=== PATIENT | female | born 1950 | race Caucasian/White ===

== ENCOUNTER 2017-05-10 00:07 | Emergency (ER) | payer OTHER ==
--- NOTE | ~2017-05-10 | CT4 ---
[facility] A Service of [facility] & [facility] RADIOLOGY TEXT RESULTS PATIENT: WILLIAM FLORES LOCATION: [facility] : 49 UNIT #: [id number] AGE: [address]: Sunny Simons MD SEX: F ORDER DR: [id number] [facility] [address] [place], [place] [address] [id number] MR#: [id number] Acc #: [id number] NAME: WILLIAM FLORES. : 1950 SEX: F STUDY DATE/TIME: 05/10/2017 UNIT: [facility] ROOM: STUDY DESCRIPTION: CT Abd and Pelv Wo Cont Attending Physician: Sunny Simons M.D. Ordering Physician: Sunny Simons M.D. Primary Care Physician: Bubba Sifuentes MEDICAL IMAGING REPORT This report is preliminary unless electronic signature is present EXAM Abdomen and pelvis CT 05/10 at 02:06 INDICATIONS Left flank and left lower quadrant pain that started yesterday. Patient also has dysuria. Pain currently rates 10 out of 10. TECHNIQUE Axial noncontrast images were obtained through the abdomen and pelvis. Multiplanar reformats were obtained. Comparison made 01/18/2013. The CT exam was performed with one or more of the following radiation dose reduction techniques: automatic exposure control, adjustment of mA and/or kV according to patient size, and iterative reconstruction. FINDINGS Abdomen: There is continued elevation of the left hemidiaphragm with atelectasis in the left lung base. Gallbladder is unremarkable. Numerous peripelvic cysts are present in the left kidney and probably in the right kidney to a lesser degree. There is a large stone in the right renal pelvis measuring 1.5 x 1.1 cm. No ureteral stones are seen on either side. No hydronephrosis. Previously seen large stone in the lower pole left kidney is no longer present. Tiny nonobstructing stone seen lower pole left kidney. The unenhanced solid organs are otherwise normal. The unopacified GI tract is normal. There is no free fluid. Pelvis: The appendix is normal. There is sigmoid diverticulosis without focal diverticulitis. Distal small bowel grossly normal. Please note that there is some extensive streak artifact in the pelvis from bilateral hip arthroplasties which obscures detail. As such, the bladder is poorly evaluated as are the solid pelvic organs. No lower ureteral stones are STS. [facility] A Service of [facility] RADIOLOGY TEXT RESULTS PATIENT: WILLIAM FLORES LOCATION: [facility] : 49 UNIT #: [id number] AGE: [address]: Sunny Simons MD SEX: F ORDER DR: seen, but the distal-most ureters are not seen. Extensive postoperative changes are again noted in the lumbar spine. Additional hardware has been placed in the upper lumbar spine and lower spinal hardware has been removed in the interval. IMPRESSION 1. Tiny nonobstructing stone lower pole left kidney. Large currently nonobstructing stone in the right renal pelvis. No definite ureteral stones are seen on either side. There is no hydronephrosis. There are bilateral parapelvic renal cysts. Please note that the distal ureters and urinary bladder are not evaluated due to extensive streak artifact from bilateral hip arthroplasties. 2. GI tract including the appendix is normal except for sigmoid diverticulosis. 3. Extensive postoperative change in the lumbar spine. Dictated by... Ra Moffett Jr., M.D. THIS IS AN ELECTRONICALLY VERIFIED REPORT Ra Moffett Jr., M.D. at 05/10/2017 9:24 PM JIM/mia TD: 05/10/2017 10:40 JOB #: [id number] MEDICAL IMAGING REPORT Page 1 of 1 COPY
[~2017-05-10 00:07] MED LIST: ACIPHEX20 MG PO; ADVAIR 2501 DISK W/D PO; ALBUTEROL MININEB NEB; ALLEGRA PO; AMBIEN PO; ASTELIN137 MCG INH; AZELASTINE137 MCG/0. NS; BACTRIM DS TABL1 TAB PO; BACTROBAN15 GM TOP; COUMADIN2.5 MG PO; FLONASE 0.05% N16 G1; FLONASE16 GM; GABAPENTIN300 MG PO; HYDROCODON-ACE1 EAC5 PO; HYDROCODON-ACE1 EACH PO; KEFLEX PO; MELOXICAM15 MG PO; MOBIC15 MG PO; NEURONTIN300 MG PO; PROVENTIL4 MG PO; PYRIDIUM PO; RANITIDINE HCL150 M1 PO; SINGULAIR PO; SUDAFED PO; ULTRAM PO; ZOLPIDEM TARTRAT5 MG PO
[2017-05-10 01:26] LABS: BASOPHIL% 0.3 % (0-2.5); DIFF IND NO; EOSINOPHIL# 0.1 X10e3 (0-0.7); EOSINOPHIL% 1.3 % (0.0-7.0); HEMATOCRIT 38.7 % (35.0-45.0); LYMPHOCYTE# 1.9 X10e3 (1.0-3.5); LYMPHOCYTE% 22.6 % (17.0-45.0); MEAN CELL VOLUME 82.5 FL (83-96); MEAN CORPUSCULAR HEMOGLOBIN 25.6 PG (28-34); MEAN PLATELET VOLUME 8.7 FL (6.5-11.5); MONOCYTE# 0.4 X10e3 (0-1.0); MONOCYTE% 5.3 % (3.0-12.0); NEUTROPHIL# 5.9 X10e3 (1.5-7.1); NEUTROPHIL% 70.5 % (40-75); PLATELET COUNT 246 X10e3 (140-420); RED BLOOD COUNT 4.69 X10e (3.90-5.30); RED CELL DISTRIBUTION WIDTH 16.6 % (11.0-15.5); WHITE BLOOD COUNT 8.4 X10e3 (4.0-10.5)
[2017-05-10 01:38] LABS: URINE SOURCE CLEAN CATCH
[2017-05-10 01:44] LABS: URINE APPEARANCE CLEAR; URINE BILIRUBIN NEG (NEG); URINE BLOOD 2+ (NEG); URINE COLOR YELLOW; URINE GLUCOSE NEG (NEG); URINE KETONE NEG (NEG); URINE LEUKOCYTE ESTERASE 3+ (NEG); URINE NITRATE POS (NEG); URINE PROTEIN NEG (NEG); URINE SPECIFIC GRAVITY 1.011 (1.003-1.035); URINE UROBILINOGEN 0.2 MG/DL (NEG)
[2017-05-10 01:47] LABS: CULTURE INDICATED? YES; URBCS1 AUWI 25-50 /[HPF] (0-2); URINE BACTERIA AUWI NEG (NEGATIVE); URINE SQUAMOUS EPITHELIAL CELL OCC /[HPF]; UWBCS1 AUWI 50-100 (0-5)
[2017-05-10 01:48] LABS: ALBUMIN SERUM 3.5 g/dL (3.5-5.0); BILIRUBIN,TOTAL 0.5 mg/dL (0.2-2.0); BUN/CREATININE RATIO 8.75; CALCIUM SERUM 8.4 mg/dL (8.4-10.2); CREATININE SERUM 0.8 mg/dL (0.6-1.4); GLOM FILT RATE Estimated 76.4 mL/min (>60); POTASSIUM 3.7 mmol/L (3.5-5.1); PROTEIN TOTAL SERUM 6.8 g/dL (6.0-8.3)
[2017-05-10 01:50] LABS: BILIRUBIN, DIRECT 0.1 mg/dL (0.0-0.2); BILIRUBIN,INDIRECT 0.4 mg/dL (0.0-0.9)
== END 2017-05-10 03:10 | disposition home or self-care (01) ==
LOC: CED 00:07
PROVIDERS: Emergency Medicine
DX: N39.0 Urinary tract infection, site not specified (principal); Z90.89 Acquired absence of other organs
CPT/HCPCS: 36415; 74176; 80048; 80076; 81003; 83690; 85025; 87086; 96365; 96375; 99284; J0696; J1170

== ENCOUNTER 2017-07-14 02:18 | Emergency (ER) | payer OTHER ==
[~2017-07-14] VITALS: Ht 154.9 cm; Wt 79.4 kg
--- NOTE | ~2017-07-14 | CT4 ---
[facility] A Service of [facility] & [facility] RADIOLOGY TEXT RESULTS PATIENT: WILLIAM FLORES LOCATION: [facility] : 49 UNIT #: [id number] AGE: [address]: Demar Beaulieu MD SEX: F ORDER DR: [id number] [facility] [address] [place], [place] [address] [id number] E MR#: [id number] Acc #: [id number] NAME: WILLIAM FLORES. : 1950 SEX: F STUDY DATE/TIME: 07/14/2017 5:05 UNIT: [facility] ROOM: STUDY DESCRIPTION: CT Abd and Pelv Wo Cont Attending Physician: Demar Beaulieu M.D. Ordering Physician: Demar Beaulieu M.D. Primary Care Physician: Bubba Sifuentes MEDICAL IMAGING REPORT This report is preliminary unless electronic signature is present EXAM CT abdomen and pelvis, noncontrast, kidney stone protocol, 07/14/2017 HISTORY 67-year-old female in the ED complaining of persistent right flank pain after stent placement, 07/09/2017. History of kidney stones. TECHNIQUE CT examination of the abdomen and pelvis without contrast using kidney stone protocol. This CT exam was performed with one or more of the following radiation dose reduction techniques: automatic exposure control, adjustment of mA and/or kV according to patient size, and iterative reconstruction. COMPARISON KUB, 07/09/2017. CT stone study, 05/10/2017. FINDINGS ABDOMEN: Since the recent KUB of 07/09/2017, the patient has apparently undergone fragmentation procedure for the previously demonstrated a large right renal pelvis stone along with right ureteral stent placement. Numerous small stone fragments are present within the right renal pelvis and right inferior renal collecting system. The right ureteral stent is well positioned. There is mild right hydronephrosis to the level of the UPJ. Remainder of the right ureter is normal in caliber. 1 or 2 tiny nonobstructing left renal calculi. Small bilateral parapelvic renal cysts. Liver, pancreas and spleen are within normal limits. No gallbladder distension or bile duct dilatation. Syom-ze-tsinnkwo sigmoid and descending colonic diverticulosis. The small bowel and colon are otherwise negative, as imaged. Normal appendix. Normal-caliber abdominal aorta. [facility] A Service of [facility] RADIOLOGY TEXT RESULTS PATIENT: WILLIAM FLORES LOCATION: [facility] : 49 UNIT #: [id number] AGE: [address]: Demar Beaulieu MD SEX: F ORDER DR: PELVIS: Pelvis images are degraded by metal artifact from bilateral total hip arthroplasties. Urinary bladder cannot be seen. Postop changes lower lumbar spine fusion surgery with instrumentation. IMPRESSION 1. Previously demonstrated right renal pelvis calcification has been fragmented since the KUB study of 07/09/2017. Numerous tiny stone fragments are present within the right renal pelvis and right lower renal collecting system, and there is mild right hydronephrosis to the level of the UPJ. A right ureteral stent is well positioned. 2. One or two tiny nonobstructing left renal calculi. 3. Small bilateral parapelvic renal cysts. 4. Colonic diverticulosis. Normal appendix. 5. Pelvis images are degraded by metal artifact from bilateral hip arthroplasties. Urinary bladder cannot be seen. Dictated by... Chidi Simons M.D. THIS IS AN ELECTRONICALLY VERIFIED REPORT Chidi Simons M.D. at 07/14/2017 4:47 PM Luis Enrique TD: 07/14/2017 11:47 JOB #: [id number] MEDICAL IMAGING REPORT Page 1 of 1 COPY
[2017-07-14 04:25] LABS: URINE SOURCE CLEAN CATCH
[2017-07-14 05:04] LABS: URINE APPEARANCE CLOUDY; URINE COLOR ORANGE
[2017-07-14 05:05] LABS: URINE BILIRUBIN NEG (NEG); URINE GLUCOSE NORM (NEG); URINE ICTOTEST NEG (NEG); URINE KETONE NEG (NEG); URINE LEUKOCYTE ESTERASE NEG (NEG); URINE NITRATE POS (NEG); URINE PROTEIN 2+ (NEG); URINE UROBILINOGEN 8 MG/DL (NEG)
[2017-07-14 05:06] LABS: URINE BLOOD 4+ (NEG)
[2017-07-14 05:09] LABS: CULTURE INDICATED? YES; URINE BACTERIA AUWI 3+ (NEGATIVE); URINE SQUAMOUS EPITHELIAL CELL MODERATE /[HPF]; UWBCS1 AUWI NEG (0-5)
[2017-07-14 05:09] LABS: BASOPHIL% 0.3 % (0-2.5); EOSINOPHIL# 0.3 X10e3 (0-0.7); EOSINOPHIL% 3.5 % (0.0-7.0); HEMATOCRIT 38.2 % (35.0-45.0); HEMOGLOBIN 12.1 gm/dL (12.0-16.0); LYMPHOCYTE% 23.4 % (17.0-45.0); MEAN CELL VOLUME 82.6 FL (83-96); MEAN CORPUSCULAR HEMOGLOBIN 26.3 PG (28-34); MEAN CORPUSCULAR HGB CONC 31.8 g/dL (30-36); MEAN PLATELET VOLUME 8.1 FL (6.5-11.5); MONOCYTE# 0.4 X10e3 (0-1.0); MONOCYTE% 4.8 % (3.0-12.0); NEUTROPHIL# 5.9 X10e3 (1.5-7.1); PLATELET COUNT 314 X10e3 (140-420); RED BLOOD COUNT 4.62 X10e (3.90-5.30); RED CELL DISTRIBUTION WIDTH 16.2 % (11.0-15.5); WHITE BLOOD COUNT 8.7 X10e3 (4.0-10.5)
[2017-07-14 05:10] LABS: DIFF IND NO
[2017-07-14 05:53] LABS: ALBUMIN SERUM 3.2 g/dL (3.5-5.0); BILIRUBIN,TOTAL 0.4 mg/dL (0.2-2.0); CALCIUM SERUM 8.8 mg/dL (8.4-10.2); GLOM FILT RATE Estimated 57.9 mL/min (>60); POTASSIUM 4.3 mmol/L (3.5-5.1); PROTEIN TOTAL SERUM 6.5 g/dL (6.0-8.3)
== END 2017-07-14 06:20 | disposition home or self-care (01) ==
LOC: CED 02:18
PROVIDERS: Emergency Medicine
DX: N13.2 Hydronephrosis with renal and ureteral calculous obstruction (principal)
CPT/HCPCS: 36415; 74176; 80053; 81003; 85025; 87086; 96361; 96374; 99284; J1885

== ENCOUNTER 2017-07-23 21:43 | Observation (INO) | payer OTHER ==
[~2017-07-23] VITALS: Ht 157.5 cm; Wt 72.6 kg
--- NOTE | ~2017-07-23 | CR2 ---
[facility] A Service of [facility] RADIOLOGY TEXT RESULTS PATIENT: WILLIAM FLORES LOCATION: A : 49 UNIT #: [id number] AGE: [address]: Erin Sams MD SEX: F ORDER DR: [id number] [facility] [address] [place], [place] [address] [id number] I MR#: [id number] Acc #: [id number] NAME: WILLIAM FLORES. : 1950 SEX: F STUDY DATE/TIME: 07/23/2017 23:29 UNIT: [facility] ROOM: 229 STUDY DESCRIPTION: CR Abdomen Acute Series Attending Physician: Erin Sams M.D. Ordering Physician: Ra Michael M.D. Primary Care Physician: Jennifer Lentz Aprn MEDICAL IMAGING REPORT This report is preliminary unless electronic signature is present EXAM Acute abdomen series HISTORY Right flank pain and nausea for 2 days. FINDINGS Flat upright views of the abdomen and upright view of the chest demonstrate no bowel dilatation or displacement. Moderate amount of stool in nondistended colon. Multilevel lumbar spinal fusion. Moderate left upper lumbar and thoracolumbar junction curve. Bilateral hip prostheses. Upright view of the chest demonstrates the cardiac size and pulmonary vascularity are normal. No infiltrates or effusions. Mild elevation of left hemidiaphragm. IMPRESSION No acute findings. Bowel gas pattern is normal. No active disease in the chest. Dictated by... Usman Zhong M.D. THIS IS AN ELECTRONICALLY VERIFIED REPORT Usman Zhong M.D. at 07/24/2017 6:14 AM BETHANY/carlos alberto TD: 07/24/2017 06:02 JOB #: [id number] MEDICAL IMAGING REPORT Page 1 of 1 COPY
--- NOTE | ~2017-07-23 | CO ---
Unit #: [id number] #: [id number] Patient: WILLIAM FLORES [id number] [address] [place], [place] [address] [id number] I MR#: [id number] NAME: WILLIAM FLORES. ROOM: 229 Age: 67 Sex: F Admission Date: 07/24/2017 : 1950 Attending Physician: Navdeep Aguiar M.D. Primary Care Physician: Jennifer Lentz Aprn CONSULTATION REPORT CHIEF COMPLAINT Right flank pain. HISTORY OF PRESENT ILLNESS The patient underwent shockwave lithotripsy and then had her stent removed at the end of 06/2017. The patient had right flank pain. CT scan in the emergency room showed a 6 mm proximal right ureteral stone. She denies fever or chills. PAST MEDICAL HISTORY Back pain, back surgery, oophorectomy, tonsillectomy, hip replacement bilaterally, seasonal allergy, GERD, recent shockwave lithotripsy, history of stones in the past. She had ureteroscopy in the past. DVT, COPD. ALLERGIES No known drug allergies. HOME MEDICATIONS Ambien, Mobic, albuterol, Singulair, hydrocodone, and proton pump inhibitor. FAMILY HISTORY Negative for any stones. SOCIAL HISTORY She stopped smoking in the past. REVIEW OF SYSTEMS Right flank pain. Negative for other systems. PHYSICAL EXAMINATION GENERAL: Alert and oriented. No acute distress. Well-developed female. VITAL SIGNS: Stable. ABDOMEN: Soft without rebound or guarding. BACK: Mild right CVA tenderness. DIAGNOSTIC STUDIES LABORATORY RESULTS: White count 13.1. Urinalysis; no bacteria. She got 1+ leukocytes. IMAGING STUDIES: CT scan, as I mentioned, showed a 6 mm proximal right ureteral stone. ASSESSMENT Unit #: [id number] #: [id number] Patient: WILLIAM FLORES Renal colic, proximal ureteral stone. I explained to her options, risks, benefits, and alternatives. I answered all of her questions. She requested and consents to ureteroscopy, laser lithotripsy, basket extraction, and stent placement on the right. Dictated by... Jaun Mora/daya TD: 07/25/2017 00:26 JOB #: [id number] CONSULTATION REPORT Page 1 of 1 X Manuel Ojeda MD CONSULTATION REPORT
--- NOTE | ~2017-07-23 | DS ---
Unit #: [id number] #: [id number] Patient: WILLIAM WOOD [id number] [address] [address] [id number] I MR#: [id number] NAME: WILLIAM WOOD. ROOM: 229 Age: 67 Sex: F Admission Date: 07/24/2017 : 1950 Discharge Date: 07/25/2017 Attending Physician: Navdeep Aguiar M.D. Primary Care Physician: Jennifer Lentz, [employer] Agent DISCHARGE SUMMARY PRINCIPAL DIAGNOSIS 1. Right renal colic secondary to right ureteral nephrolithiasis. 2. Chronic obstructive pulmonary disease. 3. Asthma. 4. Chronic pain syndrome, maintained on narcotics. 5. Degenerative joint disease. 6. Gastroesophageal reflux disease. 7. Seasonal allergies. 8. Mild protein malnutrition. 9. Overweight. 10. Gastroesophageal reflux disease. CONSULTANTS Dr. Ojeda - Urology. PROCEDURES 1. Cystoscopy, right ureteroscopy, laser lithotripsy and right ureteral stent placement. This occurred on July 24, 2017, without any complication. 2. CT scan of abdomen and pelvis without contrast on July 23, 2017, with a 6 mm obstructing stone in the proximal right ureter 3 cm beyond the ureteropelvic junction. This is associated with severe right hydronephrosis. Multiple stones in the mid and lower right kidney and right renal pelvis that are stable. Tiny nonobstructing stone in the lower pole of the left kidney. CLINICAL HISTORY AND HOSPITAL COURSE Ms. Wood is a nice 67-year-old female with a history of nephrolithiasis who presents to the emergency department with right flank pain. Patient had undergone lithotripsy at [facility] on July 09 and recently had stent removed. She presents with recurrent right flank pain. CT scan reveals right ureteral stone with associated hydronephrosis and patient was admitted. Urology was consulted and patient underwent procedure as outlined above. Postoperatively, she has done well and her pain is resolved. Renal function has remained stable throughout hospitalization. She will be discharged home on pain meds and Macrobid. All other chronic conditions remain stable. DISCHARGE CONDITION Stable. DISCHARGE STATUS Unit #: [id number] #: [id number] Patient: WILLIAM WOOD Discharge to home. DISCHARGE MEDICATIONS 1. Albuterol sulfate tablet 4 mg p.o. at bedtime. 2. Flonase 0.05% nasal spray, 2 sprays per nostril twice daily. 3. Ambien 10 mg at bedtime. 4. Singular 10 mg at bedtime. 5. Mobic 15 mg daily. 6. Lortab 10/325 mg, 1 tablet p.o. q.4 hours p.r.n. for pain. 7. Protonix 40 mg daily. 8. Baclofen 10 mg p.o. b.i.d. 9. Macrobid 100 mg p.o. b.i.d. for ten days. DISCHARGE INSTRUCTIONS Patient was instructed to follow a heart healthy diet. She can increase her activity as tolerated. FOLLOWUP Patient will follow up with Dr. Herr and/or Dr. Ojeda in 1-2 weeks at which time she will need to undergo cystoscopy and stent removal in the office. Dictated by... Jaun Claudio/arpit TD: 07/27/2017 18:29 JOB #: [id number] DISCHARGE SUMMARY Page 1 of 1 X Aster Haile MD DISCHARGE SUMMARY
--- NOTE | ~2017-07-23 | OR ---
Unit #: [id number] #: [id number] Patient: WILLIAM FLORES [id number] [address] [address] [id number] I MR#: [id number] NAME: WILLIAM FLORES. ROOM: 229 Date of Procedure: 07/24/2017 Admission Date: 07/24/2017 Surgeon: Manuel Ojeda M.D. : 1950 Attending Physician: Navdeep Aguiar M.D. Primary Care Physician: Jennifer Lentz Aprn OPERATIVE REPORT PREOPERATIVE DIAGNOSIS Right ureteral stone. POSTOPERATIVE DIAGNOSIS Right ureteral stone. PROCEDURES PERFORMED Cystoscopy, right ureteroscopy, laser lithotripsy, basket extraction, stent placement. ANESTHESIA General. DESCRIPTION OF PROCEDURE After informed consent, she was taken to the operating room, placed on general anesthetic, positioned in lithotomy. Her vagina and perineum were prepped and draped in usual sterile fashion. Cystoscopy was performed. There were no tumors or stones visible. The entire bladder was inspected. A Sensor wire was placed in the right ureter without difficulty. Under fluoroscopy, the stone was visible in the proximal ureter. Rigid ureteroscopy was performed. Her ureter was still dilated from her prior stent placement. The stone was encountered and broken up into pieces using a holmium laser. These pieces were extracted using a Nitinol basket. It was sent to the lab for analysis. Repeat ureteroscopy showed no other stones visible or present. A 5 x 24 stent was placed with the tether removed. There were good coil in the bladder and collecting system. She will return to the office or surgery center as an outpatient for cystoscopy and stent removal. Dictated by... Jaun MoraB/mablel TD: 07/25/2017 14:40 JOB #: [id number] Unit #: [id number] #: [id number] Patient: WILLIAM FLORES OPERATIVE REPORT Page 1 of 1 X Manuel Ojeda MD X PROCEDURE OPERATIVE NOTE
--- NOTE | ~2017-07-23 | HP ---
Unit #: [id number] #: [id number] Patient: WILLIAM FLORES [id number] [address] [place], [place] [address] [id number] I MR#: [id number] NAME: WILLIAM FLORES. ROOM: 229 Age: 67 Sex: F Admission Date: 07/24/2017 : 1950 Attending Physician: Erin Sams M.D. Primary Care Physician: Jennifer Lentz Aprn HISTORY AND PHYSICAL CHIEF COMPLAINT Renal colic. HISTORY This pleasant 67-year-old female with kidney stones, COPD, chronic pain, is admitted for renal colic. The patient underwent ESWL at [facility] 07/09/2017. Had a stent placed by Dr. Herr which was removed two days ago. Apparently, patient was in quite a bit of pain from the stent. She was well until late last evening when she developed severe right sided abdominal pain and presented to this emergency department. A CT scan performed shows a 6 mm proximal right ureteral stone with right hydronephrosis. Call was made to Urology who asked that Medicine admit and they will see in the morning. The patient is found to have mild pyuria, has been experiencing some mild dysuria as well. She, however, is afebrile. In the ER, she was bolused with IV fluids, given Dilaudid, Benadryl, Neurontin, Zofran, Rocephin. PAST MEDICAL HISTORY 1. DJD with chronic pain. 2. Asthma/COPD. 3. Remote right leg DVT 02/2012. 4. Kidney stones, status post laser lithotripsy and ESWL. 5. Seasonal allergies. 6. GERD. 7. Back surgery x2. 8. Oophorectomy. 9. Tonsillectomy. 10. Bilateral total hip replacement. ALLERGIES No known drug allergies. HOME MEDICATIONS From the best I can determine, include: 1. Hydrocodone 10 mg. 2. Singulair 10 mg. 3. Albuterol 4 mg along with nebulizer. 4. Proton pump inhibitor. 5. Mobic 15 mg. 6. Ambien 10 mg. Will attempt to obtain a medication list. Unit #: [id number] #: [id number] Patient: WILLIAM FLORES FAMILY HISTORY Negative for kidney stones. SOCIAL HISTORY The patient lives with her brother. She stopped smoking in the 1980s. Does not drink alcohol. REVIEW OF SYSTEMS Notable for severe right sided abdominal discomfort, kidney stones, COPD, chronic back pain, DJD, asthma, GERD, above mentioned surgeries. All other systems were reviewed and otherwise negative. PHYSICAL EXAMINATION GENERAL: Pleasant, moderately obese 67-year-old female, currently in no acute distress after receiving Dilaudid. HEENT: Eyes PERRLA. Extraocular muscles are intact. Pharynx is benign with dry mucosal membranes. NECK: Supple without adenopathy or thyromegaly. CHEST: Reveals mild expiratory wheeze. CARDIAC: Normal S1 and S2 without murmur. ABDOMEN: Bowel sounds are present. Mildly tender without rebound, guarding. No hepatosplenomegaly or masses. BACK: Without CVA tenderness. EXTREMITIES: Without C, C or E. Pedal pulses are present. NEUROLOGIC EXAM: Patient is awake, alert, oriented. Cranial nerves are intact. Equal strength throughout. DIAGNOSTIC STUDIES LABORATORY: Admission labs - hematocrit is 39.6, white blood count is 13.1, normal platelet count. SMA-12 - glucose 119, albumin is 3.4, normal amylase and lipase. Urinalysis - 1+ leukocyte esterase. No protein. 10-25 white cells without bacteria noted. IMAGING: CT scan shows a 6 mm proximal right ureteral stone with right hydronephrosis. Multiple stones in the mid and lower right kidney and pelvis, stable. Tiny nonobstructing left kidney stone. ASSESSMENT 1. Right renal colic. Patient is status post ESWL about two weeks ago. Stent was removed two days ago as patient was in quite a bit of pain from the stent. 2. Mild pyuria. 3. Asthma/COPD. 4. Chronic pain syndrome. 5. DJD. 6. GERD. 7. Remote DVT in 2011. PLANS 1. The case was discussed with Urology who will see the patient in the morning. 2. IV fluids, keep NPO for now. 3. Pain control. 4. SCDs for DVT prophylaxis. 5. Continue Rocephin for now. Unit #: [id number] #: [id number] Patient: WILLIAM FLORES Dictated by Erin Sams M.D. AML/df TD: 07/24/2017 05:35 JOB #: [id number] HISTORY AND PHYSICAL Page 1 of 1 X Erin Sams MD HISTORY AND PHYSICAL
--- NOTE | ~2017-07-23 | CT4 ---
[facility] A Service of [facility] RADIOLOGY TEXT RESULTS PATIENT: WILLIAM FLORES LOCATION: C2A 229 : [birth year] UNIT #: [id number] AGE: [address]: Navdeep Aguiar MD SEX: F ORDER DR: [id number] [facility] [address] [place], [place] [address] [id number] I MR#: [id number] Acc #: [id number] NAME: WILLIAM FLORES. : 1950 SEX: F STUDY DATE/TIME: 07/23/2017 23:51 UNIT: A ROOM: 229 STUDY DESCRIPTION: CT Abd and Pelv Wo Cont Attending Physician: Erin Sams M.D. Ordering Physician: Ra Michael M.D. Primary Care Physician: Jennifer Lentz Aprn MEDICAL IMAGING REPORT This report is preliminary unless electronic signature is present EXAM CT abdomen and pelvis without contrast HISTORY Low abdomen pain, right lower quadrant pain for 2 days. Recent ureteral stent and stent removal. FINDINGS This CT examination was performed with one or more of the following radiation dose reduction techniques: automatic exposure control, adjustment of mA and/or kV according to patient size, and iterative reconstruction. CT abdomen and pelvis was performed without contrast. CT ABDOMEN: There is severe right hydronephrosis and moderate right perinephric stranding, new compared to 07/14/2017 CT. The right ureteral stent has been removed. There is a 6 mm obstructing stone in the proximal right ureter 3 cm beyond the ureteropelvic junction. Multiple additional stones in the mid and lower right kidney and in the right renal pelvis. Probable bilateral parapelvic renal cysts. Tiny nonobstructing stone in the lower pole left kidney. The liver, gallbladder, spleen, pancreas, and adrenal glands are normal. No bowel dilatation. Multilevel lumbar fusion. CT PELVIS: Streak artifacts from bilateral hip prostheses limits evaluation of the mid and lower pelvis. No pelvic mass or fluid collection is identified. The bladder is poorly visualized. IMPRESSION 1. 6 mm obstructing stone in the proximal right ureter 3 cm beyond the ureteropelvic junction causing severe right hydronephrosis. Right ureteral stent has been removed since CT 07/14/2017. 2. Multiple stones in the mid and lower right kidney and right renal STS. [facility] A Service of [facility] & [facility] RADIOLOGY TEXT RESULTS PATIENT: WILLIAM FLORES LOCATION: C2A 229-01 : [birth year] UNIT #: [id number] AGE: [address]: Navdeep Aguiar MD SEX: F ORDER DR: pelvis are stable compared to the recent CT. 3. Tiny nonobstructing stone in the lower pole of the left kidney. Dictated by... Usman Zhong M.D. THIS IS AN ELECTRONICALLY VERIFIED REPORT Usman Zhong M.D. at 07/24/2017 3:50 PM BETHANY/blake TD: 07/24/2017 06:16 JOB #: [id number] MEDICAL IMAGING REPORT Page 1 of 1 COPY
[2017-07-23 23:22] LABS: BASOPHIL% 0.2 % (0-2.5); EOSINOPHIL# 0.1 X10e3 (0-0.7); EOSINOPHIL% 0.9 % (0.0-7.0); HEMATOCRIT 39.6 % (35.0-45.0); HEMOGLOBIN 12.3 gm/dL (12.0-16.0); LYMPHOCYTE# 1.2 X10e3 (1.0-3.5); LYMPHOCYTE% 8.9 % (17.0-45.0); MEAN CELL VOLUME 82.4 FL (83-96); MEAN CORPUSCULAR HEMOGLOBIN 25.7 PG (28-34); MEAN CORPUSCULAR HGB CONC 31.2 g/dL (30-36); MEAN PLATELET VOLUME 7.7 FL (6.5-11.5); MONOCYTE# 0.8 X10e3 (0-1.0); MONOCYTE% 5.8 % (3.0-12.0); NEUTROPHIL% 84.2 % (40-75); PLATELET COUNT 346 X10e3 (140-420); RED BLOOD COUNT 4.81 X10e (3.90-5.30); RED CELL DISTRIBUTION WIDTH 16.1 % (11.0-15.5); WHITE BLOOD COUNT 13.1 X10e3 (4.0-10.5)
[2017-07-23 23:23] LABS: DIFF IND NO
[2017-07-23 23:46] LABS: ALBUMIN SERUM 3.4 g/dL (3.5-5.0); BILIRUBIN, DIRECT 0.1 mg/dL (0.0-0.2); BILIRUBIN,INDIRECT 0.6 mg/dL (0.0-0.9); BILIRUBIN,TOTAL 0.7 mg/dL (0.2-2.0); BUN/CREATININE RATIO 7.27; CALCIUM SERUM 8.8 mg/dL (8.4-10.2); CREATININE SERUM 1.1 mg/dL (0.6-1.4); GLOM FILT RATE Estimated 51.6 mL/min (>60); POTASSIUM 4.1 mmol/L (3.5-5.1); PROTEIN TOTAL SERUM 6.8 g/dL (6.0-8.3)
[2017-07-24 00:30] LABS: URINE SOURCE CLEAN CATCH
[2017-07-24 00:34] LABS: URINE APPEARANCE CLEAR; URINE BILIRUBIN NEG (NEG); URINE BLOOD 2+ (NEG); URINE COLOR YELLOW; URINE GLUCOSE NEG (NEG); URINE KETONE NEG (NEG); URINE LEUKOCYTE ESTERASE 1+ (NEG); URINE NITRATE NEG (NEG); URINE PROTEIN NEG (NEG); URINE SPECIFIC GRAVITY 1.011 (1.003-1.035); URINE UROBILINOGEN 0.2 MG/DL (NEG)
[2017-07-24 00:38] LABS: CULTURE INDICATED? YES; U HYALINE CASTS AUWI 0-2 /[LPF]; URINE BACTERIA AUWI NEG (NEGATIVE); URINE SQUAMOUS EPITHELIAL CELL NONE SEEN /[HPF]
[2017-07-24] MEDS ORDERED: LIORESAL10 MG PO (02:59)
[2017-07-24] MEDS ORDERED: PANTOPRAZOLE SO40 MG PO (02:59)
[2017-07-24 12:41] LABS: BASOPHIL% 0.4 % (0-2.5); EOSINOPHIL# 0.1 X10e3 (0-0.7); EOSINOPHIL% 0.9 % (0.0-7.0); HEMATOCRIT 34.8 % (35.0-45.0); HEMOGLOBIN 11.2 gm/dL (12.0-16.0); LYMPHOCYTE# 1.4 X10e3 (1.0-3.5); LYMPHOCYTE% 13.6 % (17.0-45.0); MEAN CELL VOLUME 82.1 FL (83-96); MEAN CORPUSCULAR HEMOGLOBIN 26.3 PG (28-34); MEAN CORPUSCULAR HGB CONC 32.1 g/dL (30-36); MEAN PLATELET VOLUME 7.2 FL (6.5-11.5); MONOCYTE# 0.9 X10e3 (0-1.0); MONOCYTE% 8.7 % (3.0-12.0); NEUTROPHIL# 7.8 X10e3 (1.5-7.1); NEUTROPHIL% 76.4 % (40-75); PLATELET COUNT 279 X10e3 (140-420); RED BLOOD COUNT 4.23 X10e (3.90-5.30); RED CELL DISTRIBUTION WIDTH 16.5 % (11.0-15.5); WHITE BLOOD COUNT 10.2 X10e3 (4.0-10.5)
[2017-07-24 12:43] LABS: DIFF IND NO
[2017-07-24 13:15] LABS: BUN/CREATININE RATIO 6.25; CALCIUM SERUM 8.1 mg/dL (8.4-10.2); CREATININE SERUM 0.8 mg/dL (0.6-1.4); GLOM FILT RATE Estimated 75.8 mL/min (>60); POTASSIUM 4.3 mmol/L (3.5-5.1)
[2017-07-25] MEDS ORDERED: MACROBID100 M1 PO (12:17)
== END 2017-07-25 13:25 | disposition home or self-care (01) ==
LOC: CED 21:43 → CEDOF 07-24 03:40 → CED 07-24 03:43 → CEDOF 07-24 04:51 → C2A 07-24 04:51
PROVIDERS: Emergency Medicine; Internal Medicine
DX: N20.1 Calculus of ureter (principal); J44.9 Chronic obstructive pulmonary disease, unspecified; J45.909 Unspecified asthma, uncomplicated; G89.4 Chronic pain syndrome; M19.90 Unspecified osteoarthritis, unspecified site; K21.9 Gastro-esophageal reflux disease without esophagitis; E46 Unspecified protein-calorie malnutrition; E66.3 Overweight; Z87.891 Personal history of nicotine dependence; Z87.442 Personal history of urinary calculi; Z86.718 Personal history of other venous thrombosis and embolism; Z79.899 Other long term (current) drug therapy; Z79.1 Long term (current) use of non-steroidal anti-inflammatories (NSAID); Z79.51 Long term (current) use of inhaled steroids; Z98.890 Other specified postprocedural states; Z90.721 Acquired absence of ovaries, unilateral; Z96.643 Presence of artificial hip joint, bilateral
CPT/HCPCS: 36415; 74022; 74176; 80048; 80076; 81003; 82150; 82365; 83690; 85025; 87086; 94760; 96361; 96374; 96375; 96376; 99285; C2617; G0378; J0696; J1170; J1200; J2270; J2405; J2765